=== PATIENT | male | born 2005 | race Caucasian/White ===

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

== ENCOUNTER 2025-04-18 02:52 | Emergency (ER) | payer BC, SELFPAY ==
--- OUTSIDE RECORDS SUMMARY | 2025-04-18 02:54 | XMS_ITS | Encounter Summary ---
Author Organization [facility] Address [address] [place] [address]. [place] [address] Care Team Providers Care Biofuels Engineering Manager Name Role Phone [facility], [facility] Primary Care Provider [facility]am [facility] Unavailable + [phone] [facility] Unavailable + [phone] Kailee Martin [facility] Unavailable [phone] Encounter Details Date Type Department Care Team (Late st Contact Info) Description 12/16/2022 [facility] Mental Health & Addiction [place] [address] [phone] Maurisio Johnson Social History Tobacco Use Types Packs/Day Years Used Date Smoking Tobacco: Never Assessed Sex and Gender Information Value Date Recorded Sex Assigned at Not on file Legal 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 Gender Identity Not on file Sexual Orientation Not on file documented as of this encounter Plan of Treatment Not on file documented as of this encounter Visit Diagnoses Not on filedocumented in this encounter Care Teams Biofuels Engineering Manager Relationship Specialty Start Date End Date [facility], [address] [address] PCP - General 01/12/12 S[facility] Pham [facility] [address] [place] [address] [phone] Pharmacist Pharmacist 02/02/23 [facility] Pham [facility] [address] [place] [address] [phone] Assigned MTM Pharmacist 02/11/2308/16 Kailee Martin LICSW [address] [place], [place] [id number] [place], [place] [phone] Assigned Behavioral Health Provider 01/16/24 06/16/24 documented as of this encounter
--- OUTSIDE RECORDS SUMMARY | 2025-04-18 02:54 | XMS_ITS | Encounter Summary ---
Author Organization [facility] Address [address] [place] [address]. [place] [address] Care Team Providers Care Fibre Cement Moulder Name Role Phone [facility], [facility] Primary Care Provider [facility] Unavailable + [phone] [facility] Unavailable + [phone] Kailee Martin [facility] Unavailable [phone] Encounter Details Date Type Department Care Team (Late st Contact Info) Description 12/09/2022 [facility] 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 [address] [place] [address] [phone] Pharmacist Pharmacist 02/02/23 [facility]am [facility] [address] [place] [address] [phone] Assigned MTM Pharmacist 02/11/2308/16 Kailee Martin LICSW [address] [place], [place] [id number] [place], [place] [phone] Assigned Behavioral Health Provider 01/16/24 06/16/24 documented as of this encounter
--- OUTSIDE RECORDS SUMMARY | 2025-04-18 02:54 | XMS_ITS | Clinical Summary ---
Author Organization [facility] Address [address] [place] [address] Care Team Providers Care Sales Floor Manager Name Role Phone Arturo Israel MD Primary Care Provider [phone] Allergies No known active allergies Medications hydrOXYzine HCL (ATARAX) 25 mg tabletIndications :Anxiety Take 1-2 tablets (25-50 mg) twice a day as needed for sleep or anxiety 120 Tablet 1 4 Active haloperidoL 2 mg tabletIndications :Paranoid schizophrenia (HC) Take 1 Tablet (2 mg) by mouth two times daily. 60 Tablet 2 5 Active fluticasone (50 mcg per actuation) nasal solution (FLONASE)Indicati ons:Nasal congestion Inhale 1 Udall to both nostrils once daily. 16 g 1 4 03/28/20 25 Discontin ued(*Emily ent states no longer taking) Active Problems Problem Noted Date Diagnosed Date Anxiety 03/28/2023 Overview (03/28/2023): March 2023: trying hydroxyzine. Psychiatric E-consult was completed on , see E-Consult recommendations for medication options. Hemangioma of skin 01/03/2023 Overview (01/03/2023): top of his head Nondependent cannabis abuse in remission 022 01/03/2023 Schizophrenia 03/09/2022 01/03/2023 Encounters Date Type Department Care Team Description 03/27/2025 8:15 AM CDT Office Visit [facility] [address] [place] [address] Arturo Israel MD Follow Up (Recheck Epididymitis ); Hearing Problem (Having a hard time hearing) 03/27/2025 Travel 02/12/2025 9:45 AM CDT Office Visit [facility] [address] [place] [address] Tanvi Aguila MD Medication Management (Wants to get back on medication) 02/12/2025 Travel 01/29/2025 2:15 PM CDT Office Visit [facility] [address] [place] [address] Fortino Driscoll MD Pain (LT sided- discomfort on the left side was difficult to sleep. Worse when laying down ) 01/29/2025 Travel from Last 3 Months Immunizations Immunization Administration Dates Next Due COVID-19 vaccine (Etelos-viaCycle NTech 30mcg/0.3mL) 12YO+ PHOEBE-SUCROSE PF, MDV 02/09/2022 COVID-19 vaccine (Etelos-viaCycle NTech 30mcg/0.3mL) PF, MDV 03/24/2021,02/27/2021 DTaP 10/15/2007 RPmO-VhrT-YNJ (Pediarix) 02/14/2005,2004,1 11/22/2003 DTaP-IPV (Kinrix) 07/13/2009 HIB PRP-OMP (PedvaxHIB) 2004,2004 HPV 9 (Gardasil 9) 02/09/2022,04/21/2021, 021 Hepatitis A (Peds) 05/25/2011,07/22/2008 MENINGOCOCCAL VACCINE 2 VIAL 2MO-55YO (MENVEO) 02/04/2021,05/30/2017 MMR 07/10/2009,09/27/2005 MMRV 07/13/2009 Pneumococcal conj 7-Valent (Prevnar 7) 1 ,02/14/2005,2004,09/21 Tdap 05/30/2017 Varicella Vaccine 07/13/2009,09/27/2005 Family History Medical History Relation Name Comments Good Health Father Heart Disease Maternal Grandfather Heart Disease Maternal Grandmother Hyperlipidemia Maternal Grandmother Hypertension Maternal Grandmother Good Health Mother Diabetes Paternal Grandfather Diabetes Paternal Grandmother Good Health Sister 2 Asthma No Family History Cancer-colon No Family History Relation Name Status Comments Father Alive Maternal Grandfather Maternal Grandmother Alive Mother Alive Paternal Grandfather Alive Paternal Grandmother Alive Sister 1 Alive Sister 2 Social History Tobacco Use Types Packs/Day Years Used Date Smoking Tobacco: Never Smokeless Tobacco: Never Tobacco Cessation:Counseling Given: Yes Alcohol Use Standard Drinks/Week Comments Yes 0 (1 standard drink = 0.6 oz pur e alcohol) PHQ-2 Answer Date Recorded PHQ-2 TOTAL SCORE 0 03/18/2024 Social Connections Answer Date Recorded Frequency of Communication with Friends and Fami ly 0 03/24/2023 Financial Resource Strain Answer Date R ecorded Difficulty of Paying Living Expenses 3 03/24/2023 Difficulty of Paying Living Expenses Not on file 03/24/2023 Food Insecurity Answer Date Recorded Worried About Running Out of Food in the Last Ye ar 1 03/24/2023 Transportation Needs Answer Date Record ed Lack of Transportation (Medical) 1 03/24/2023 Housing Stability Answer Date Recorded Unable to Pay for Housing in the Last Year 1 03/24/2023 Sex and Gender Information Value Date Recorded Sex Assigned at Not on file Legal Sex Male 7:06 AM HOUSING PROPERTY MANAGER Gender Identity Not on file Sexual Orientation Not on file Occupation Industry Job Start Date Job End Date Student Not on file Not on file Not on file Obstetrics History Last Filed Vital Signs Vital Sign Reading Time Taken Comments Blood Pressure 112/71 03/27/2025 8:21 AM CDT Pulse 70 03/27/2025 8:21 AM CDT Temperature 36.7 C (98.1 F) 09/04/2024 8:26 AM HOUSING PROPERTY MANAGER Respiratory Rate 18 03/24/2023 12:28 PM CDT Oxygen Saturation 99% 03/27/2025 8:21 AM CDT Inhaled Oxygen Concentration - - Weight 89.5 kg (197 lb 6.4 oz) 03/27/2025 8:21 A M CDT Height 168.4 cm (5' 6.3) 03/27/2025 8:21 AM CDT Body Mass Index 31.57 03/27/2025 8:21 AM CDT Plan of Treatment Health Maintenance Due Date Last Done Comments HIV for age 15-65 2019 Hepatitis C screening for age 18-79 2022 Well Child Check for age 3-20 02/09/2023 02/09/2022, 02/04/2021, 05/12/2014, Additional history exists COVID-19 vaccine series (2023- season) 2024 02/09/2022, 03/24/2021, 02/27/2021 Depression screening for age 12+ 03/18/2025 03/18/2024, 02/07/2024, 02/07/2024, Additional history exists Influenza Vaccine (#1) 2025 BMI (ht and wt on same day) for age 18+ 03/27/2026 03/27/2025, 11/02/2023, 03/27/2023, Additional history exists Tetanus booster 05/30/2027 05/30/2017 Hepatitis B series for 19+ Completed 02/14, 2004, 2004 Pneumococcal series for age 6-49 Aged Out 07/22/2008, 02/14/2005, 2004, Additional history exists No longer eligible based on patient's age to complete this topic Meningococcal series for age 11-21 Completed 02/04/2021, 05/30/2017 HPV series for age 9-26 Completed 02/10/20 22, 04/21/2021, 02/04/2021 Insurance [facility] Care Teams Sales Floor Manager Relationship Specialty Start Date End Date Arturo Israel MD [address] [place] [address] PCP - General Family Practice 05/11/23
--- OUTSIDE RECORDS SUMMARY | 2025-04-18 02:54 | XMS_ITS | Encounter Summary ---
Author Organization [facility] Address [address] [place] [address]. [place] [address] Care Team Providers Care Bookkeeping Manager Name Role Phone [facility] Primary Care Provider [employer] Unavailable + [phone] [employer] Unavailable + [phone] Kailee Martin [facility] Unavailable [phone] Encounter Details Date Type Department Care Team (Late st Contact Info) Description 05/31/2023 [facility] Mental Health & Addiction [place] [id number] [phone] Moni Hopkins, [place] [phone] [address] 353124 Social History Tobacco Use Types Packs/Day Years Used Date Smoking Tobacco: Never Assessed Sex and Gender Information Value Date Recorded Sex Assigned at Not on file 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 Gender Identity Not on file Sexual Orientation Not on file documented as of this encounter Plan of Treatment Not on file documented as of this encounter Visit Diagnoses Not on filedocumented in this encounter Care Teams Bookkeeping Manager Relationship Specialty Start Date End Date [facility] [address] [place] [address] PCP - General 01/12/12 S[facility] Pham [facility] [address] [place] [address] Pharmacist Pharmacist 02/02/23 [facility] [address] [place] [address] Assigned MTM Pharmacist 02/11/2308/16 Kailee Martin LICSW [address] [place] [address] Assigned Behavioral Health Provider 01/16/24 06/16/24 documented as of this encounter
--- OUTSIDE RECORDS SUMMARY | 2025-04-18 02:54 | XMS_ITS | Clinical Summary ---
Author Organization [place] Address [address] [place] [address] Care Team Providers Care Systems Mgr Name Role Phone [facility], [facility] Primary Care Provider S[facility]hire Pham [facility] Unavailable [phone] Allergies No known active allergies Medications ARIPiprazole (ABILIFY) 15 MG tablet Take 15 mg by mouth At Bedtime 3 Active montelukast (SINGULAIR) 10 MG tablet Take 10 mg by mouth At Bedtime Active albuterol (PROAIR HFA/PROVENTIL HFA/VENTOLIN HFA) 108 (90 Base) MCG/ACT inhaler Inhale 1-2 puffs into the lungs every 4 hours as needed Active polyethylene glycol (MIRALAX) 17 GM/Dose powder Take 8.5 g by mouth daily as needed for constipation Active Social History Tobacco Use Types Packs/Day Years Used Date Smoking Tobacco: Never Assessed Adolescent Education Answer Date Record ed Getting School Help Needed Not on file 06/16 Sex and Gender Information Value Date Recorded Sex Assigned at Not on file 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 Gender Identity Not on file Sexual Orientation Not on file Last Filed Vital Signs Vital Sign Reading Time Taken Comments Blood Pressure - - Pulse 118 01/12/2012 11:33 PM CDT Temperature 36.8 C (98.2 F) 01/12/2012 10:18 PM CDT Respiratory Rate 20 01/12/2012 11:33 PM CDT Oxygen Saturation 99% 01/12/2012 11:33 PM CDT Inhaled Oxygen Concentration - - Weight 24.4 kg (53 lb 12.7 oz) 01/12/2012 10:18 PM CDT Height - - Body Mass Index - - Plan of Treatment Health Maintenance Due Date Last Done Comments ADVANCE CARE PLANNING 2004 ANNUAL REVIEW OF HM ORDERS 2004 MENINGITIS B VACCINE (1 of 2 - Standard) 2020 YEARLY PREVENTIVE VISIT 02/09/2023 02/09/2022, 02/04 COVID-19 VACCINE ( season) 2024 02/09/2022, 03/24/2021, 02/27/2021 PHQ-2 (once per calendar year) 2024 INFLUENZA VACCINE (#1) 2025 DTAP/TDAP/TD VACCINE (7 - Td or Tdap) 05/30/2027 05/30/2017, 07/13/2009, 10/15/2007, Additional history exists ZOSTER VACCINE (1 of 2) 2054 HEPATITIS B VACCINE Completed 02/14/2005, 2004, 2004 PNEUMOCOCCAL VACCINE: PEDIATRICS (0 to 5 YEARS) AND AT-RISK PATIENTS (6 to 49 YEARS) Aged Out 07/22/2008, 02/14/2005, 2004, Additional history exists No longer eligible based on patient's age to complete this topic MENINGITIS VACCINE Completed 02/04/2021, 05/30/2017 HPV VACCINE Completed 02/09/2022, 07/04/2021, 02/04/2021 HEPATITIS C SCREENING Completed 02/23/2022 HIV SCREENING Completed 02/23/2022 Care Teams Systems Mgr Relationship Specialty Start Date End Date [facility] [address] [place], [place] [id number] PCP - General 01/12/12 Sapphire Pham RPH [address] [facility] [address] [place] [address] Pharmacist Pharmacist 02/02/23
--- OUTSIDE RECORDS SUMMARY | 2025-04-18 02:54 | XMS_ITS | Encounter Summary ---
Author Organization [place] Address [address] [place] [address]. [place] [address] Care Team Providers Care Chief Projectionist Name Role Phone [facility] Primary Care Provider [facility] Unavailable +- [phone] [facility] Unavailable + [phone] Kailee Martin [facility] Unavailable [phone] Encounter Details Date Type Department Care Team (Late st Contact Info) Description 12/08/2022 [facility] Mental Health & Addiction [place] [address] [address] [phone] Kailee Martin, CENTRAL OFFICE TECHNICIAN [address] [place] [address] Social History Tobacco Use Types Packs/Day Years Used Date Smoking Tobacco: Never Assessed Sex and Gender Information Value Date Recorded Sex Assigned at Not on file 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 Gender Identity Not on file Sexual Orientation Not on file documented as of this encounter Plan of Treatment Not on file documented as of this encounter Visit Diagnoses Not on filedocumented in this encounter Care Teams Chief Projectionist Relationship Specialty Start Date End Date [facility] [address] [place] [address] PCP - General 01/12/12 Sapphire Pham [facility] [address] [place] [address] Pharmacist Pharmacist 02/02/23 S[facility]hire Pham R[facility] [address] [place] [address] Assigned MTM Pharmacist 02/11/2308/16 Kailee Martin LICSW [address] [place] [address] Assigned Behavioral Health Provider 01/16/24 06/16/24 documented as of this encounter
--- OUTSIDE RECORDS SUMMARY | 2025-04-18 02:54 | XMS_ITS | Encounter Summary ---
Author Organization [place] Address [address] [place] [address]. [place] [address] Care Team Providers Care Corrosion Engineer Name Role Phone [facility] Primary Care Provider S[facility]hire Pham [facility] Unavailable +- [phone] [facility] Unavailable + [phone] Kailee Martin [facility] Unavailable [phone] Encounter Details Date Type Department Care Team (Late st Contact Info) Description 12/20/2022 [facility] [place] [facility] Mental Health & Addiction [place] [phone] [phone] William Tolbert Social History Tobacco Use Types Packs/Day Years Used Date Smoking Tobacco: Never Assessed Sex and Gender Information Value Date Recorded Sex Assigned at Not on file Legal 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 Gender Identity Not on file Sexual Orientation Not on file documented as of this encounter Plan of Treatment Not on file documented as of this encounter Visit Diagnoses Not on filedocumented in this encounter Care Teams Corrosion Engineer Relationship Specialty Start Date End Date [address] [address] PCP - General 01/12/12 Sapphire Pham [facility] [address] [place] [address] [phone] Pharmacist Pharmacist 02/02/23 Sapphire Pham [facility] [address] [address] Assigned MTM Pharmacist 02/11/2308/16 Kailee Martin LICSW [address] [place], [place] [id number] [place], [place] [phone] Assigned Behavioral Health Provider 01/16/24 06/16/24 documented as of this encounter
[2025-04-18 03:02] VITALS: BP 147/46; PULSE 68; RESP 16; TEMP 36.6; O2SAT 98; BMI 30.8
--- NOTE | 2025-04-18 03:28 | ED.ANXIETY ---
HPI - Anxiety General Date Seen: 04/18/25 Chief Complaint: Anxiety Stated Complaint: anxiety Time Seen by Provider: 04/18/25 03:12 Source: patient Mode of arrival: ambulatory Limitations: no limitations History of Present Illness HPI narrative: Patient is a 19-year-old male with anxiety and schizophrenia who comes in with a restless feeling and inability to sleep. He apparently stopped his medications a few months ago and just restarted them about three weeks ago. He is supposed to be taking Paxil and buspirone on a regular basis with Haldol as a p.r.n. medication. Today when he took his Haldol he was still on able to get comfortable and sleep. This is his 1st sleepless night. He denies depression. He denies any thoughts of hurting himself or anyone else. 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 by himself. He smokes marijuana on occasion but no drug or alcohol use today or tonight. He denies any visual or auditory hallucinations. He is oriented and calm and cooperative. No physical concerns. Related Data Home Medications ?Medication ?Instructions ?Recorded ?Confirmed haloperidol 2 mg tablet 2 mg PO BID 04/18/25 04/18/25 Allergies Allergy/AdvReac Type Severity Reaction Status Date / Time No Known Drug Allergies Allergy Verified 02/04/23 00:26 Review of Systems Narrative: Review of systems is outlined above otherwise noted to be negative. PFSH PFS Social History Do you use any of these nicotine containing products: None How often do you have a drink containing alcohol: never AUDIT-C Alcohol total score: 0 Non-prescribed substance use: marijuana (any form) Exam Narrative: Exam Narrative: Vitals noted. HEENT: Conjunctiva clear. Neck is supple without adenopathy. Lungs: Clear to auscultation in all guadalupe. No wheezes, rales, rhonchi. Heart: Regular rate and rhythm without murmur. Abdomen: Soft and nontender. No guarding, rigidity, rebound. Bowel sounds are normal. No palpable masses. Extremities: No cyanosis or edema. Good distal pulses. Skin: No abnormalities noted of the exposed skin. Neurologic: Awake, alert, fully oriented. Neurologic exam is nonfocal. No abnormal thought processes identified. Mood is normal. Affect is normal. Const: Vital Signs, click to edit/add: Vital Signs - 24 hr 04/18/25 03:02 Temperature 98 F Pulse Rate [Pulse Oximeter] 68 Respiratory Rate 16 Blood Pressure [Ri ght Upper Arm] 147/46 H Pulse Oximetry 98 Oxygen Delivery Me thod Room Air Course Course ED Course: Patient seen and examined. No evidence of severe depression. No sign of psychosis or intoxication. He is calm but frustrated with his inability to sleep. He plans to get in touch with his psychiatrist in get a follow-up appointment scheduled to have his medications adjusted. I explained to him that I cannot give him any sedating medication as he drove himself here but I think it is acceptable to get him some lorazepam that he can take when he gets back home. No indication for emergency psychiatric evaluation. He is comfortable with this plan. I sent lorazepam to the in [employer] machine. Vital Signs Vital signs: Initial Vital Signs Temperature 98 F 04/18/25 03:02 Temperature Source Temporal Artery Scan 04/18/25 03:02 Pulse Rate 68 04/18/25 03:02 Respiratory Rate 16 04/18/25 03:02 Blood Pressure 147/46 H 04/18/25 03:02 Blood Pressure Mean 79 04/18/25 03:02 Blood Pressure Position Sitting 04/18/25 03:02 Pulse Oximetry 98 04/18/25 03:02 Oxygen Delivery Method Room Air 04/18/25 03:02 Vital Signs Temperature 98 F 04/18/25 03:02 Pulse Rate 68 04/18/25 03:02 Respiratory Rate 16 04/18/25 03:02 Blood Pressure 147/46 H 04/18/25 03:02 Pulse Oximetry 98 04/18/25 03:02 Oxygen Delivery Method Room Air 04/18/25 03:02 Temperature 98 F 04/18/25 03:02 Pulse Rate 68 04/18/25 03:02 Respiratory Rate 16 04/18/25 03:02 Blood Pressure 147/46 H 04/18/25 03:02 Pulse Oximetry 98 04/18/25 03:02 Oxygen Delivery Method Room Air 04/18/25 03:02 Discharge Plan Discharge Clinical Impression: Acute anxiety Patient Disposition: Home, Self-Care Condition: Stable Additional Instructions: Continue current meds - Paxil, Buspar, Haldol. Add Ativan 1 mg twice a day and at bedtime as needed to help with sleep and anxiety. Contact your psychiatrist for follow up. Prescriptions: No Action haloperidol 2 mg tablet 2 mg PO BID Follow Up/Referrals: Provider,Not a Local [Primary Care Provider, Family Practice] Stand Alone Forms: [employer] Info Instructions
== END 2025-04-18 03:33 | disposition home or self-care (01) ==
LOC: ED 03:30
PROVIDERS: Emergency Provider Family Medicine
DX: F41.9 Anxiety disorder, unspecified (principal)
CPT/HCPCS: 99282; 99283